=== PATIENT | female | born 1995 | race Caucasian/White ===

== ENCOUNTER 2020-05-15 10:55 | Observation (INO) | payer OTHER | END 2020-05-15 11:15 | disposition home or self-care (01) | LOC: 4S 10:55 | PROVIDERS: ADMIT Obstetrics & Gynecology; ATTEND Obstetrics & Gynecology | DX: Z03.818 Encounter for observation for suspected exposure to other biological agents ruled out (principal); O26.893 Other specified pregnancy related conditions, third trimester; Z3A.38 38 weeks gestation of pregnancy | CPT/HCPCS: 87635; G0378 ==